=== PATIENT | female | born 1935 | race Caucasian/White ===

== ENCOUNTER 2017-01-03 15:53 | Emergency (ER) | payer MEDICARE, BC ==
[2017-01-03 17:03] LABS: HEMOGLOBIN 11.5 gm/dl (12.3-15.3); RED BLOOD COUNT 3.78 M/UL (4.00-5.10); WHITE BLOOD COUNT 9.2 K/UL (4.5-11.0)
== END 2017-01-03 20:06 | disposition left against medical advice (07) ==
LOC: ER1 15:53
PROVIDERS: Physician Assistant
DX: M79.89 Other specified soft tissue disorders (principal); E78.5 Hyperlipidemia, unspecified; F41.9 Anxiety disorder, unspecified; E78.00 Pure hypercholesterolemia, unspecified; F32.9 Major depressive disorder, single episode, unspecified; Z88.2 Allergy status to sulfonamides; Z88.8 Allergy status to other drugs, medicaments and biological substances; Z90.710 Acquired absence of both cervix and uterus
CPT/HCPCS: 71010; 80053; 81001; 82550; 82553; 83874; 83880; 84443; 84484; 85025; 85379; 93005; 99283

== ENCOUNTER 2020-12-20 20:25 | Observation (INO) | payer MEDICARE, BC ==
[~2020-12-20] VITALS: Ht 167.6 cm; Wt 68.5 kg
[2020-12-20 20:43] LABS: HEMOGLOBIN 10.7 gm/dl (12.3-15.3); RED BLOOD COUNT 3.63 M/UL (4.00-5.10); WHITE BLOOD COUNT 16.2 K/UL (4.5-11.0)
[2020-12-20 21:14] LABS: BUN/CREATININE RATIO 15 (0-10)
[2020-12-20] MEDS ORDERED: VITAMIN D 40400 UNIT PO (23:18)
[2020-12-20] MEDS ORDERED: LEXAPRO20 MG PO (23:18)
[2020-12-20] MEDS ORDERED: NEXIUM20 MG PO (23:18)
[2020-12-20] MEDS ORDERED: AZELASTINE137 MCG/0. (23:19)
[2020-12-20] MEDS ORDERED: ARIMIDEX 1 MG TA1 MG PO (23:19)
[2020-12-20] MEDS ORDERED: PREDNISONE 10 M10 MG PO (23:20)
[2020-12-20] MEDS ORDERED: NORVASC10 MG PO (23:20)
[2020-12-20] MEDS ORDERED: TRAZODONE HCL100 MG PO (23:21)
[2020-12-20] MEDS ORDERED: ALPRAZOLAM ER1 MG PO (23:21)
[2020-12-20] MEDS ORDERED: AMBIEN5 MG PO (23:22)
[2020-12-21 01:29] LABS: BUN/CREATININE RATIO 17 (0-10)
[2020-12-21 05:45] LABS: HEMOGLOBIN 10.7 gm/dl (12.3-15.3); RED BLOOD COUNT 3.68 M/UL (4.00-5.10); WHITE BLOOD COUNT 16.4 K/UL (4.5-11.0)
--- NOTE | 2020-12-21 06:32 | NUR ---
LAB CALLED RN TO NOTIFY OF CRITICAL LACTIC ACID LEVEL. LEVEL NOTED TO BE TRENDING DOWN. RN TO NOTIFY ONCOMING NURSE.
[2020-12-21 21:09] LABS: ACINETOBACTER BAUMANNII Not Detected (Negative); CANDIDA ALBICANS Not Detected (Negative); CANDIDA KRUSEI Not Detected (Negative); CANDIDA TROPICALIS Not Detected (Negative); ENTEROCOCCUS Not Detected (Negative); ESCHERICHIA COLI Not Detected (Negative); HAEMOPHILUS INFLUENZAE Not Detected (Negative); KLEBSIELLA OXYTOCA Not Detected (Negative); KLEBSIELLA PNEUMONIAE Not Detected (Negative); KPC-CARBAPENEM-RESISTANCE GENE Not Detected (Negative); PROTEUS Not Detected (Negative); PSEUDOMONAS AERUGINOSA Not Detected (Negative); SERRATIA MARCESANS Not Detected (Negative); STAPHYLOCOCCUS AUREUS Not Detected (Negative); STREP AGALACTIAE (GROUP B) Not Detected (Negative); STREP PYOGENES (GROUP A) Not Detected (Negative); STREPTOCOCCUS Not Detected (Negative); vanA/B (VANCOMYCIN RESIST GENE Not Detected (Negative)
[2020-12-21 22:50] LABS: mecA (METHICILLIN RESIST GENE DETECTED (Negative)
[2020-12-21 22:51] LABS: STAPHYLOCOCCUS DETECTED (Negative)
[2020-12-22 06:22] LABS: HEMOGLOBIN 9.7 gm/dl (12.3-15.3)
[2020-12-22 06:25] LABS: RED BLOOD COUNT 3.31 M/UL (4.00-5.10); WHITE BLOOD COUNT 10.3 K/UL (4.5-11.0)
[2020-12-22 06:46] LABS: BUN/CREATININE RATIO 12 (0-10)
[2020-12-22] MEDS ORDERED: AMOX TR-K CLV1 EAC4 PO (15:54)
[2020-12-22] MEDS ORDERED: ALBUTEROL0.63 MG/3 NEB (15:54)
[2020-12-22] MEDS ORDERED: NEBULIZER UNIT INH (15:56)
== END 2020-12-22 17:15 | disposition home or self-care (01) ==
LOC: ER1 20:25 → CDU 12-21 00:45 → MED SURG 4 12-21 00:45
PROVIDERS: Family Medicine; Internal Medicine; ADMIT Internal Medicine
DX: J01.90 Acute sinusitis, unspecified (principal); J20.9 Acute bronchitis, unspecified; J42 Unspecified chronic bronchitis; E87.2 Acidosis; J31.0 Chronic rhinitis; E86.0 Dehydration; R00.0 Tachycardia, unspecified; F41.9 Anxiety disorder, unspecified; D64.9 Anemia, unspecified; E87.1 Hypo-osmolality and hyponatremia; E87.6 Hypokalemia; I10 Essential (primary) hypertension; Z20.822 Contact with and (suspected) exposure to COVID-19; Z85.3 Personal history of malignant neoplasm of breast; Z90.12 Acquired absence of left breast and nipple; Z88.2 Allergy status to sulfonamides; Z79.52 Long term (current) use of systemic steroids; Z79.899 Other long term (current) drug therapy
CPT/HCPCS: 96374; 0240U; 36415; 70486; 71046; 80048; 80053; 81001; 82550; 82553; 83605; 83880; 84484; 85025; 85379; 85610; 85730; 86140; 87040; 87077; 87081; 87150; 87186; 87880; 93005; 94640; 94664; 94760; 96372; 96376; 99285; G0378; J1650; J3370; J3480; J7070; Q9967

== ENCOUNTER → 2021-06-03 | Outpatient (CLI) | payer MEDICARE, BC ==
[~2021-06-03] MED LIST: ALBUTEROL0.63 MG/3 NEB; ALPRAZOLAM ER1 MG PO; AMBIEN5 MG PO; AMOX TR-K CLV1 EAC4 PO; ARIMIDEX 1 MG TA1 MG PO; AZELASTINE137 MCG/0.; LEXAPRO20 MG PO; NEBULIZER UNIT INH; NEXIUM20 MG PO; NORVASC10 MG PO; PREDNISONE 10 M10 MG PO; TRAZODONE HCL100 MG PO; VITAMIN D 40400 UNIT PO
== END ==
LOC: EMI 14:00
DX: G44.89 Other headache syndrome (principal); M47.812 Spondylosis without myelopathy or radiculopathy, cervical region; G31.9 Degenerative disease of nervous system, unspecified; M50.23 Other cervical disc displacement, cervicothoracic region
CPT/HCPCS: 70551; 72141

== ENCOUNTER 2021-06-12 11:29 | Inpatient (IN) | payer MEDICARE, BC ==
[~2021-06-12] VITALS: Ht 167.6 cm; Wt 67.6 kg
[~2021-06-12 11:29] MED LIST changes: -ALPRAZOLAM ER1 MG PO; -AMBIEN5 MG PO; -AZELASTINE137 MCG/0.; -LEXAPRO20 MG PO; -NEXIUM20 MG PO; -NORVASC10 MG PO; -TRAZODONE HCL100 MG PO
[2021-06-12 12:25] LABS: HEMOGLOBIN 11.1 gm/dl (12.3-15.3); RED BLOOD COUNT 3.86 M/UL (4.00-5.10)
[2021-06-12 13:01] LABS: BUN/CREATININE RATIO 13 (0-10)
[2021-06-12] MEDS ORDERED: MACROBID 100 M100 MG PO (17:54)
[2021-06-12] MEDS ORDERED: ZANAFLEX4 MG PO (17:55)
[2021-06-12] MEDS ORDERED: BUTALB-ACETAMI1 EAC1 PO (17:56)
[2021-06-12] MEDS ORDERED: FLONASE ALLER15.8 ML (17:57)
[2021-06-12] MEDS ORDERED: IPRATROPIUM BRO15 ML (17:59)
[2021-06-12] MEDS ORDERED: NEXIUM20 MG PO (23:18)
[2021-06-12] MEDS ORDERED: LEXAPRO20 MG PO (23:18)
[2021-06-12] MEDS ORDERED: AZELASTINE137 MCG/0. (23:19)
[2021-06-12] MEDS ORDERED: NORVASC10 MG PO (23:20)
[2021-06-12] MEDS ORDERED: TRAZODONE HCL100 MG PO (23:21)
[2021-06-12] MEDS ORDERED: ALPRAZOLAM ER1 MG PO (23:21)
[2021-06-12] MEDS ORDERED: AMBIEN5 MG PO (23:22)
[2021-06-13 06:44] LABS: HEMOGLOBIN 10.8 gm/dl (12.3-15.3); RED BLOOD COUNT 3.76 M/UL (4.00-5.10); WHITE BLOOD COUNT 8.5 K/UL (4.5-11.0)
[2021-06-13 07:06] LABS: BUN/CREATININE RATIO 12 (0-10)
[2021-06-15 10:53] LABS: HEMOGLOBIN 10.7 gm/dl (12.3-15.3); RED BLOOD COUNT 3.72 M/UL (4.00-5.10); WHITE BLOOD COUNT 10.5 K/UL (4.5-11.0)
[2021-06-15 11:17] LABS: BUN/CREATININE RATIO 7 (0-10)
[2021-06-16 06:47] LABS: HEMOGLOBIN 11.2 gm/dl (12.3-15.3); RED BLOOD COUNT 3.9 M/UL (4.00-5.10); WHITE BLOOD COUNT 10.1 K/UL (4.5-11.0)
[2021-06-16 07:10] LABS: BUN/CREATININE RATIO 7 (0-10)
[2021-06-16] MEDS ORDERED: LOPRESSOR 25 MG25 MG PO ×2 (17:52→18:16)
[2021-06-16] MEDS ORDERED: FERROUS GLUCON324 M1 PO (17:52)
[2021-06-16] MEDS ORDERED: LEVOFLOXACIN750 MG PO (17:52)
[2021-06-16] MEDS ORDERED: MI-ACID80 MG PO (17:52)
[2021-06-16] MEDS ORDERED: CHRONULAC20 GM/30 M PO (17:52)
[2021-06-16] MEDS ORDERED: MECLIZINE HCL25 MG PO (17:52)
--- NOTE | 2021-06-16 17:52 | NUR ---
was instructed by dr. delarosa to give levaquin tablet due @ 2100 before discharge
[2021-06-16] MEDS ORDERED: K-TAB ER20 MEQ PO (18:03)
[2021-06-16] MEDS ORDERED: CALCIUM500 MG PO (18:06)
[2021-06-16] MEDS ORDERED: COLACE 100MG C100 MG PO (18:16)
--- NOTE | 2021-06-16 18:40 | NUR ---
report given to [facility] pressure controller nurse
== END 2021-06-16 21:16 | disposition home health service (06) | DRG 391 ==
LOC: ER1 11:29 → M/S 15:44 → CDU 15:44 → M/S 22:53
PROVIDERS: Nurse Practitioner; Physician Assistant; ADMIT Internal Medicine
PROC: B24BZZZ Ultrasonography of Heart with Aorta (ICD-10-PCS; principal; 2021-06-14)
DX: K59.09 Other constipation (principal); J18.9 Pneumonia, unspecified organism; E87.1 Hypo-osmolality and hyponatremia; I10 Essential (primary) hypertension; R53.81 Other malaise; F41.9 Anxiety disorder, unspecified; D50.9 Iron deficiency anemia, unspecified; E87.6 Hypokalemia; E83.51 Hypocalcemia; E55.9 Vitamin D deficiency, unspecified; K21.9 Gastro-esophageal reflux disease without esophagitis; G47.00 Insomnia, unspecified; K44.9 Diaphragmatic hernia without obstruction or gangrene; Z96.643 Presence of artificial hip joint, bilateral; M54.16 Radiculopathy, lumbar region; I08.3 Combined rheumatic disorders of mitral, aortic and tricuspid valves; Z85.3 Personal history of malignant neoplasm of breast; Z88.2 Allergy status to sulfonamides; Z82.49 Family history of ischemic heart disease and other diseases of the circulatory system; Z90.12 Acquired absence of left breast and nipple; Z90.49 Acquired absence of other specified parts of digestive tract
CPT/HCPCS: ECHO; 36415; 70450; 71045; 71046; 74019; 80048; 80053; 81001; 82550; 82553; 82607; 83540; 83550; 83735; 83874; 84132; 84439; 84443; 84484; 85025; 85027; 85652; 86140; 87086; 93005; 93306; 93880; 97116-GP-CQ; 97162; 97166; 99285; J0360; J0610; J1650; J1956; J3480; J7030; Q9967; U0002

== ENCOUNTER → 2021-06-22 | Emergency (ER) | payer MEDICARE, BC ==
[~2021-06-22] MED LIST changes: +ALPRAZOLAM ER1 MG PO; +AMBIEN5 MG PO; +AZELASTINE137 MCG/0.; +BUTALB-ACETAMI1 EAC1 PO; +CALCIUM500 MG PO; +CHRONULAC20 GM/30 M PO; +COLACE 100MG C100 MG PO; +FERROUS GLUCON324 M1 PO; +FLONASE ALLER15.8 ML; +IPRATROPIUM BRO15 ML; +K-TAB ER20 MEQ PO; +LEVOFLOXACIN750 MG PO; +LEXAPRO20 MG PO; +LOPRESSOR 25 MG25 MG PO; +MACROBID 100 M100 MG PO; +MECLIZINE HCL25 MG PO; +MI-ACID80 MG PO; +NEXIUM20 MG PO; +NORVASC10 MG PO; +TRAZODONE HCL100 MG PO; +ZANAFLEX4 MG PO
[2021-06-22 19:21] LABS: HEMOGLOBIN 11.3 gm/dl (12.3-15.3); RED BLOOD COUNT 3.87 M/UL (4.00-5.10); WHITE BLOOD COUNT 10.9 K/UL (4.5-11.0)
[2021-06-22 19:43] LABS: BUN/CREATININE RATIO 14 (0-10)
== END | disposition home or self-care (01) ==
LOC: ER1 18:13
PROVIDERS: Family Medicine
DX: E87.1 Hypo-osmolality and hyponatremia (principal); Z90.49 Acquired absence of other specified parts of digestive tract; Z88.2 Allergy status to sulfonamides
CPT/HCPCS: 71045; 80053; 82550; 82553; 83874; 84484; 85025; 93005; 99285